=== PATIENT | male | born 1985 | race Caucasian/White ===

== ENCOUNTER 2020-01-01 19:14 | Emergency (ER) | payer OTHER ==
[~2020-01-01] VITALS: Ht 182.9 cm; Wt 77.1 kg
[2020-01-01 19:58] VITALS: BP 128/78
--- NOTE | 2020-01-01 19:58 | NUR ---
MSE COMPLETED, ACI/RX X2 GIVEN. PT AMBULATED, TOOK ALL BELONGINGS.
== END 2020-01-01 19:59 | disposition home or self-care (01) ==
LOC: ER 19:18
DX: G51.0 Bell's palsy (principal)
CPT/HCPCS: A4663

== ENCOUNTER 2020-02-13 17:54 | Emergency (ER) | payer OTHER ==
[~2020-02-13] VITALS: Ht 182.9 cm; Wt 77.1 kg
--- NOTE | 2020-02-13 18:38 | NUR ---
PT IS IN ROOM #1B. DR PRIETO EVALUATED THE PT.
[2020-02-13 19:12] VITALS: BP 128/75
--- NOTE | 2020-02-13 19:12 | NUR ---
Patient discharged to home in stable condition. Written and verbal after care instructions given. Patient verbalizes understanding of instructions. Stressed follow up or return to ER for worsening s/s. Patient ambulated with stable gait.
== END 2020-02-13 19:14 | disposition home or self-care (01) ==
LOC: ER 17:57
DX: S10.0XXA Contusion of throat, initial encounter (principal); Y04.0XXA Assault by unarmed brawl or fight, initial encounter; Y92.89 Other specified places as the place of occurrence of the external cause; F17.200 Nicotine dependence, unspecified, uncomplicated
CPT/HCPCS: 70360; A4663

== ENCOUNTER 2020-03-28 09:00 | Emergency (ER) | payer OTHER ==
[~2020-03-28] VITALS: Ht 182.9 cm; Wt 77.1 kg
--- NOTE | 2020-03-28 09:03 | NUR ---
DR Lopez at the bedside for MSE.
[2020-03-28] MEDS ORDERED: BUPR1FIL SL (09:12)
[2020-03-28 10:05] VITALS: BP 112/88
--- NOTE | 2020-03-28 10:05 | NUR ---
Patient discharged to home in stable condition. Written and verbal after care instructions given. Patient verbalizes understanding of instructions. Stressed follow up or return to ER for worsening s/s.
== END 2020-03-28 10:07 | disposition home or self-care (01) ==
LOC: ER 09:00
DX: S63.601A Unspecified sprain of right thumb, initial encounter (principal); S60.111A Contusion of right thumb with damage to nail, initial encounter; W23.0XXA Caught, crushed, jammed, or pinched between moving objects, initial encounter; Y92.89 Other specified places as the place of occurrence of the external cause
CPT/HCPCS: 73140; A4663

== ENCOUNTER 2023-10-06 20:07 | Emergency (ER) | payer OTHER ==
[~2023-10-06] VITALS: Ht 182.9 cm; Wt 90.7 kg
[~2023-10-06 20:07] MED LIST: BUPR1FIL SL
[2023-10-06] MEDS ORDERED: CLINDAMYCIN 600 MG PIGGYBACK**ER OMNI IV ONE (21:23)
[2023-10-06 21:25] LABS: BASOPHILS % (AUTO) 0.5 % (0.0-2.0); EOSINOPHILS # (AUTO) 0.2 K/uL (0.0-0.7); EOSINOPHILS % (AUTO) 3.4 % (0.0-7.0); HEMATOCRIT 38.9 % (36.7-47.1); HEMOGLOBIN 13.2 g/dL (12.5-16.3); LYMPHOCYTES # (AUTO) 1.5 K/uL (0.8-4.8); MEAN CORPUSCULAR HEMOGLOBIN 32.2 uug (23.8-33.4); MEAN CORPUSCULAR HGB CONC 34 g/dL (32.5-36.3); MEAN CORPUSCULAR VOLUME 94.7 fL (73.0-96.2); MONOCYTES # (AUTO) 0.6 K/uL (0.1-1.30); MONOCYTES % (AUTO) 8.9 % (0.0-11.0); NEUTROPHILS # (AUTO) 4.4 K/uL (1.8-8.9); NEUTROPHILS % (AUTO) 65.2 % (38.5-71.5); PLATELET COUNT (AUTO) 247 K/uL (152-348); RED BLOOD CELL COUNT(AUTO) 4.11 MIL/uL (4.06-5.63); RED CELL DISTRIBUTION WIDTH 13.1 % (12.1-16.2); WHITE BLOOD COUNT (AUTO) 6.7 K/uL (3.6-10.2)
[2023-10-06] MEDS: CLINDAMYCIN PHOSPHATE IV 600 MG in IV DEXTROSE 5% 100 ML IV ONE (21:26)
[2023-10-06 21:35] LABS: DIFFERENTIAL COMMENT 1
[2023-10-06 21:39] LABS: CALCIUM 8.8 mg/dL (8.5-10.1); CREATININE 0.9 mg/dL (0.6-1.3); POTASSIUM 3.8 mmol/L (3.5-5.1)
[2023-10-06 21:46] LABS: ALBUMIN 3.2 g/dL (3.4-5.0); BILIRUBIN,TOTAL 0.2 mg/dL (0.2-1.0); TOTAL PROTEIN, SERUM 7.1 g/dL (6.4-8.2)
[2023-10-06] MEDS ORDERED: CLIN-118 PO (22:12)
[2023-10-06 23:15] VITALS: BP 124/82; TEMP 97.9; O2SAT 98
== END 2023-10-06 23:16 | disposition home or self-care (01) ==
LOC: ER 20:09
DX: L03.115 Cellulitis of right lower limb (principal); F17.200 Nicotine dependence, unspecified, uncomplicated; Z79.899 Other long term (current) drug therapy; Z98.890 Other specified postprocedural states
CPT/HCPCS: 99284; 96365; 80053; 84550; 85025; 87040; 36415; 73630; 83605; J3490 ×2; A4606; A4663

== ENCOUNTER 2024-01-08 03:15 | Emergency (ER) | payer OTHER ==
[~2024-01-08] VITALS: Ht 182.9 cm; Wt 93.0 kg
[~2024-01-08 03:15] MED LIST changes: +CLIN-118 PO
[2024-01-08] MEDS ORDERED: CEFTRIAXONE 1 G VIAL ONE (03:39)
[2024-01-08] MEDS ORDERED: CLINDAMYCIN HCL 300 MG CAPSULE ONE (03:40)
[2024-01-08] MEDS ORDERED: LIDOCAINE HCL 1% 20 ML VIAL ONE (03:40)
[2024-01-08] MEDS ORDERED: HYDROCODONE/APAP 10-325 MG TABLET ONE (03:41)
[2024-01-08] MEDS: CLINDAMYCIN HCL 150 MG CAPSULE PO ONE (03:45)
[2024-01-08] MEDS: HYDROCODONE/APAP 10-325 MG TABLET PO ONE (03:45)
[2024-01-08] MEDS: CEFTRIAXONE 1 G VIAL IM ONE (03:45)
[2024-01-08] MEDS ORDERED: HYDR-3980 PO (03:48)
[2024-01-08] MEDS ORDERED: CLIN300C12 PO (03:48)
[2024-01-08] MEDS ORDERED: NALO4SPR NS (03:48)
[2024-01-08 04:01] VITALS: BP 128/60; TEMP 97.8; O2SAT 98
== END 2024-01-08 04:01 | disposition home or self-care (01) ==
LOC: ER 03:22
DX: L03.116 Cellulitis of left lower limb (principal); F17.210 Nicotine dependence, cigarettes, uncomplicated; Z98.890 Other specified postprocedural states; Z79.899 Other long term (current) drug therapy
CPT/HCPCS: 99283; 99406; 96372; J0696; J3490; A4606; A4663